=== PATIENT | male | born 1995 | race African-American/Black ===

== ENCOUNTER 2021-05-30 10:48 | Emergency (ER) | payer SELFPAY ==
[~2021-05-30] VITALS: Ht 172.7 cm; Wt 68.0 kg
[2021-05-30] MEDS ORDERED: DOXYCYCLINE HYCLATE 100 MG TABLET PO ONE (11:15)
[2021-05-30] MEDS ORDERED: DOXY-326 PO (11:15)
[2021-05-30] MEDS ORDERED: CEFTRIAXONE 500 MG VIAL IM ONE (11:15)
[2021-05-30 11:23] LABS: *BILIRUBIN,URIN NEGATIVE (NEGATIVE); *BLOOD, URINE NEGATIVE (NEGATIVE); *CLARITY,URINE CLEAR (CLEAR); *COLOR,URINE YELLOW (YELLOW); *KETONES,URINE TRACE (NEGATIVE); *UROBILINOGEN,URINE 0.2 E.U./dl (NORMAL); LEUKOCYTE ESTERASE ,URINE NEGATIVE (NEGATIVE); NITRITE, URINE NEGATIVE (NEGATIVE); UGLUCOSE NEGATIVE (NEGATIVE)
[2021-05-30] MEDS ORDERED: CEFTRIAXONE 500 MG VIAL ONE (11:24)
[2021-05-30] MEDS ORDERED: DOXYCYCLINE HYCLATE 100 MG TABLET ONE (11:25)
[2021-05-30] MEDS ORDERED: LIDOCAINE HCL 2% 20 ML VIAL ONE (11:25)
--- NOTE | 2021-05-30 11:29 | NUR ---
PT WAS EVALUATED BY DR LUU. PT WAS D/C'd TO HOME. D/C INSTRUCTIONS GIVEN TO THE PT BY DR LUU.
[2021-05-30 11:30] VITALS: BP 131/69
[2021-05-30 13:17] LABS: BACTERIA,URINE NONE SEEN /HPF (NONE SEEN); RBC,URINE NONE SEEN /HPF (0-3); SQUAMOUS EPITHELIAL CELL,UR FEW /HPF (NONE SEEN); WBC,URINE 0-3 /HPF (0-3)
[2021-06-01 00:06] LABS: *GC NAA Negative (Negative)
[2021-06-02 21:06] LABS: *TRIC.VAG. NAA Negative (Negative)
== END 2021-05-30 11:31 | disposition home or self-care (01) ==
LOC: ER 10:48
DX: S09.90XA Unspecified injury of head, initial encounter (principal); S01.01XA Laceration without foreign body of scalp, initial encounter; W01.0XXA Fall on same level from slipping, tripping and stumbling without subsequent striking against object, initial encounter; Y92.89 Other specified places as the place of occurrence of the external cause; R30.0 Dysuria; Z72.51 High risk heterosexual behavior
CPT/HCPCS: 81001; 87491; 96372; 99283; J0696; J3490; A4217; A4663